=== PATIENT | female | born 1940 | race Caucasian/White ===

== ENCOUNTER → 2016-07-19 | Outpatient (CLI) | payer OTHER ==
[~2016-07-19] MED LIST: CILOSTAZOL100 MG PO; FISH OIL CONC1 EACH PO; FUROSEMIDE40 MG PO; GLIMEPIRIDE4 MG PO; JANUVIA25 M1 PO; LEVOTHROID,S0.175 MG PO; METOCLOPRAMIDE10 MG PO; NORVASC5 MG PO; PRILOSEC20 MG PO; SIMVASTATIN20 MG PO; SPIRONOLACTONE50 MG PO; URSODIOL300 MG PO; VITAMIN D1000 UNIT PO; VITAMIN E400 UNI1 PO; ZESTRIL,PRINIVI40 MG PO
== END | disposition home or self-care (01) ==
LOC: RAD 11:36
DX: R06.00 Dyspnea, unspecified (principal); G82.20 Paraplegia, unspecified
CPT/HCPCS: 71020

== ENCOUNTER 2017-11-04 16:10 | Inpatient (IN) | payer OTHER ==
[~2017-11-04] VITALS: Ht 157.5 cm; Wt 165.0 kg
[2017-11-04 17:04] LABS: HEMATOCRIT 32.9 % (36.0-46.0); MCH 30.7 PG (29.0-34.0); MCHC 33.4 G/DL (30.0-36.0); PLATELET COUNT 89 K/uL (156-360); RBC DIS.WIDTH-CV 13.5 % (11.8-14.6); RBC DIS.WIDTH-SD 45.6 % (39-53); RED BLOOD COUNT 3.58 M/uL (3.80-5.20); WHITE BLOOD COUNT 6.9 K/uL (4.1-10.2)
[2017-11-04 17:05] LABS: MCV 91.9 FL (83-99)
[2017-11-04 17:15] LABS: CHLORIDE 105 mEq/L (99-109); POTASSIUM 3.6 mEq/L (3.7-5.4); SODIUM 140 mEq/L (136-147)
[2017-11-04 17:21] LABS: CREATININE 1.4 mg/dL (0.6-1.3); GFR ESTIMATE (CALCULATED) 39 mL/min/; GLUCOSE 471 mg/dL (70-99)
[2017-11-04 17:22] LABS: UREA NITROGEN (BUN) 30 mg/dL (9-23)
[2017-11-04 17:25] LABS: TROP-I INTERPRETATION NEGATIVE; TROPONIN-I 0.01 ng/mL (0.0-0.30)
[2017-11-04] MEDS ORDERED: PREDNISONE20 MG PO (19:28)
[2017-11-04] MEDS ORDERED: AZITHROMYCIN250 MG PO (19:29)
[2017-11-04] MEDS ORDERED: LEVOTHYROXINE175 MCG PO (19:30)
[2017-11-04] MEDS ORDERED: LOSARTAN POTASS25 MG PO (19:30)
[2017-11-04] MEDS ORDERED: ROPINIROLE HC0.25 MG PO (19:31)
[2017-11-04] MEDS ORDERED: OMEPRAZOLE40 M1 PO (19:32)
[2017-11-04] MEDS ORDERED: FLUOXETINE HCL20 MG PO (19:32)
[2017-11-04] MEDS ORDERED: NOVOLOG MI100 UNIT/2 SC (19:35)
[2017-11-04] MEDS ORDERED: ADVAIR 500/501 DISK IH (19:36)
[2017-11-04] MEDS ORDERED: XOPENEX HF200 INHALA IH (19:41)
[2017-11-04] MEDS ORDERED: ROSUVASTATIN CA10 MG PO (19:41)
[2017-11-04 22:00] VITALS: BP 133/63
[2017-11-04 22:50] LABS: CHLORIDE 107 mEq/L (99-109); SODIUM 141 mEq/L (136-147)
[2017-11-04 22:51] LABS: MAGNESIUM 1.6 mg/dL (1.3-2.7)
[2017-11-04 22:56] LABS: CREATININE 1.7 mg/dL (0.6-1.3); GFR ESTIMATE (CALCULATED) 31 mL/min/
[2017-11-04 22:57] LABS: UREA NITROGEN (BUN) 32 mg/dL (9-23)
[2017-11-04 22:59] LABS: TROP-I INTERPRETATION NEGATIVE; TROPONIN-I 0.05 ng/mL (0.0-0.30)
[2017-11-04 23:04] LABS: GLUCOSE 467 mg/dL (70-99); POTASSIUM 4.4 mEq/L (3.7-5.4)
[2017-11-04 23:44] VITALS: BP 112/53
[2017-11-05 04:05] LABS: APPEARANCE CLEAR ((CLEAR)); BILIRUBIN NEGATIVE; BLOOD NEGATIVE; COLOR YELLOW ((YELLOW)); GLUCOSE (STRIP) >=500; KETONES NEGATIVE; LEUKOCYTES NEGATIVE; NITRITE NEGATIVE; PROTEIN (STRIP) NEGATIVE; SPECIFIC GRAVITY 1.016 (1.000-1.030); UCUL ADDED? NO; UROBILINOGEN 0.2 MG/DL (0.2-1.0)
[2017-11-05 04:26] VITALS: BP 148/67
[2017-11-05 06:38] LABS: HEMATOCRIT 30.7 % (36.0-46.0); HEMOGLOBIN 9.9 G/DL (11.9-15.5); MCH 30.1 PG (29.0-34.0); MCHC 32.2 G/DL (30.0-36.0); MCV 93.3 FL (83-99); PLATELET COUNT 93 K/uL (156-360); RBC DIS.WIDTH-SD 47.4 % (39-53); RED BLOOD COUNT 3.29 M/uL (3.80-5.20); WHITE BLOOD COUNT 6.9 K/uL (4.1-10.2)
[2017-11-05 07:20] VITALS: BP 124/58
[2017-11-05 07:30] LABS: CHLORIDE 111 MEQ/L (99-109); GFR ESTIMATE (CALCULATED) 47 mL/min/; POTASSIUM 4.2 MEQ/L (3.7-5.4); SODIUM 144 MEQ/L (136-147); UREA NITROGEN (BUN) 29 mg/dL (9-23)
[2017-11-05 07:35] LABS: CREATININE 1.2 MG/DL (0.6-1.3); GLUCOSE 119 mg/dL (70-99)
[2017-11-05 08:05] LABS: TROP-I INTERPRETATION NEGATIVE; TROPONIN-I 0.17 ng/mL (0.0-0.30)
[2017-11-05 11:08] VITALS: BP 120/54
[2017-11-05 15:30] VITALS: BP 123/55
[2017-11-05 19:11] VITALS: BP 128/60
[2017-11-05 23:58] VITALS: BP 128/57
[2017-11-06 03:56] VITALS: BP 115/55
[2017-11-06 05:35] LABS: HEMATOCRIT 29.2 % (36.0-46.0); HEMOGLOBIN 9.5 G/DL (11.9-15.5); MCH 30.4 PG (29.0-34.0); MCHC 32.5 G/DL (30.0-36.0); MCV 93.6 FL (83-99); PLATELET COUNT 82 K/uL (156-360); RBC DIS.WIDTH-CV 14.1 % (11.8-14.6); RBC DIS.WIDTH-SD 47.8 % (39-53); RED BLOOD COUNT 3.12 M/uL (3.80-5.20); WHITE BLOOD COUNT 6.6 K/uL (4.1-10.2)
[2017-11-06 05:59] LABS: ALBUMIN 3.8 G/DL (3.2-4.8); ALKALINE PHOSPHATASE 27 IU/L (3-129); ALT (GPT) 14 IU/L (3-49); AST (GOT) 16 IU/L (2-34); CHLORIDE 109 MEQ/L (99-109); CREATININE 1.3 MG/DL (0.6-1.3); GFR ESTIMATE (CALCULATED) 42 mL/min/; GLUCOSE 134 mg/dL (70-99); POTASSIUM 3.5 MEQ/L (3.7-5.4); SODIUM 142 MEQ/L (136-147); TOTAL BILIRUBIN 0.3 MG/DL (0.0-1.0); TOTAL PROTEIN 5.8 G/DL (6.4-8.3); UREA NITROGEN (BUN) 30 mg/dL (9-23)
[2017-11-06 07:37] VITALS: BP 134/65
[2017-11-06 11:29] VITALS: BP 130/64
[2017-11-06 16:00] VITALS: BP 110/90
[2017-11-06 19:45] VITALS: BP 162/67
[2017-11-06 23:53] VITALS: BP 144/51
[2017-11-07 03:59] VITALS: BP 165/72
[2017-11-07 07:46] VITALS: BP 162/75
[2017-11-07 10:11] LABS: HEMATOCRIT 34.4 % (36.0-46.0); HEMOGLOBIN 11.1 G/DL (11.9-15.5); MCH 30.4 PG (29.0-34.0); MCHC 32.3 G/DL (30.0-36.0); MCV 94.2 FL (83-99); PLATELET COUNT 93 K/uL (156-360); RBC DIS.WIDTH-SD 47.9 % (39-53); RED BLOOD COUNT 3.65 M/uL (3.80-5.20); WHITE BLOOD COUNT 6.2 K/uL (4.1-10.2)
[2017-11-07 11:00] LABS: CHLORIDE 105 MEQ/L (99-109); CREATININE 1.2 MG/DL (0.6-1.3); GFR ESTIMATE (CALCULATED) 47 mL/min/; POTASSIUM 3.6 MEQ/L (3.7-5.4); SODIUM 143 MEQ/L (136-147); UREA NITROGEN (BUN) 27 mg/dL (9-23)
[2017-11-07 11:03] LABS: GLUCOSE 91 mg/dL (70-99)
[2017-11-07 11:44] VITALS: BP 143/66
[2017-11-07] MEDS ORDERED: PREDNISONE10 MG PO (15:06)
[2017-11-07] MEDS ORDERED: CEFDINIR300 MG PO (15:51)
[2017-11-07 16:00] VITALS: BP 130/61
[2017-11-07] MEDS ORDERED: NOVOLOG MI100 UNIT/2 SC (16:02)
== END 2017-11-07 17:11 | disposition home or self-care (01) | DRG 191 ==
LOC: EME 16:10 → EDOF 20:39 → 5SOUTH 20:39 → ENRESERV 20:42 → 5SOUTH 22:02
PROVIDERS: Emergency Medicine; Hospitalist; Internal Medicine; Physician Assistant Medical
DX: J44.0 Chronic obstructive pulmonary disease with (acute) lower respiratory infection (principal); N17.9 Acute kidney failure, unspecified; Z68.44 Body mass index [BMI] 60.0-69.9, adult; J44.1 Chronic obstructive pulmonary disease with (acute) exacerbation; J20.9 Acute bronchitis, unspecified; I10 Essential (primary) hypertension; E78.5 Hyperlipidemia, unspecified; K75.4 Autoimmune hepatitis; Z66 Do not resuscitate; K74.60 Unspecified cirrhosis of liver; E03.9 Hypothyroidism, unspecified; E87.6 Hypokalemia; K21.9 Gastro-esophageal reflux disease without esophagitis; T38.0X5A Adverse effect of glucocorticoids and synthetic analogues, initial encounter; E11.65 Type 2 diabetes mellitus with hyperglycemia; D69.59 Other secondary thrombocytopenia; E66.9 Obesity, unspecified; R94.31 Abnormal electrocardiogram [ECG] [EKG]; R00.0 Tachycardia, unspecified; I27.20 Pulmonary hypertension, unspecified; Z79.4 Long term (current) use of insulin; Z76.82 Awaiting organ transplant status; Z88.5 Allergy status to narcotic agent; Z87.891 Personal history of nicotine dependence; Z86.010 Personal history of colon polyps; Z90.11 Acquired absence of right breast and nipple; Z90.49 Acquired absence of other specified parts of digestive tract; Z79.52 Long term (current) use of systemic steroids; Z79.51 Long term (current) use of inhaled steroids; Z90.710 Acquired absence of both cervix and uterus; Z82.49 Family history of ischemic heart disease and other diseases of the circulatory system; Z80.0 Family history of malignant neoplasm of digestive organs
CPT/HCPCS: 71046; 80048; 80048 91; 80053; 81003; 82010; 82803; 82948; 83735; 84484; 85027; 85379; 93005; 93306; 94640; 94640 76; 94760; 99202; 99281; 99285; J0456; J0696; J1815; J7040; J7512